=== PATIENT | female | born 1955 | race Caucasian/White ===

== ENCOUNTER 2017-05-18 17:12 | Inpatient (IN) | payer MEDICAID, OTHER ==
[~2017-05-18] VITALS: Ht 170.2 cm; Wt 59.0 kg
[~2017-05-18 17:12] MED LIST: LEVO50 PO; RISP1 PO
[2017-05-18 18:35] LABS: BASOPHILS # (AUTO) 0.02 K/uL (0.00-0.20); BASOPHILS % (AUTO) 0.3 % (0.0-2.0); EOSINOPHILS # (AUTO) 0.06 K/uL (0.00-0.70); EOSINOPHILS % (AUTO) 1.07 % (1.0-6.0); HEMATOCRIT 34.4 % (36-46); HEMOGLOBIN 11.7 g/dL (12.0-16.0); LYMPHOCYTES # (AUTO) 1.2 K/uL (1.0-4.8); LYMPHOCYTES % (AUTO) 22.2 % (22.0-44.0); MEAN CORPUSCULAR HEMOGLOBIN 32.8 pg (26.0-34.0); MEAN CORPUSCULAR HGB CONC 34.1 G/dL (31.0-37.0); MEAN CORPUSCULAR VOLUME 96 fL (80-100); MONOCYTES # (AUTO) 0.4 K/uL (0.1-1.0); MONOCYTES % (AUTO) 6.9 % (2.0-9.0); NEUTROPHILS # (AUTO) 3.7 K/uL (1.8-7.7); NEUTROPHILS % (AUTO) 69.5 % (40.0-70.0); PLATELET COUNT (AUTO) 163 K/uL (150-450); RED BLOOD CELL COUNT(AUTO) 3.58 MIL/uL (4.00-5.20); RED CELL DISTRIBUTION WIDTH 12.8 % (11.5-14.5); WHITE BLOOD COUNT (AUTO) 5.4 K/uL (4.5-11.0)
[2017-05-18 18:47] LABS: ANION GAP 7 mmol/L (8-16); CALCIUM, TOTAL 8.4 mg/dL (8.8-10.5); CARBON DIOXIDE 28 mmol/L (22-29); CHLORIDE 106 mmol/L (98-107); CREATININE 0.93 mg/dL (0.60-1.30); GLOMERULAR FILTR. RATE CALC > 60 mL/min (>60); POTASSIUM 4.1 mmol/L (3.5-5.1); SODIUM SERUM 141 mmol/L (136-145); UREA NITROGEN, BLOOD 13 mg/dL (7-18)
[2017-05-18 18:53] LABS: ALANINE AMINOTRANSFERASE 19 U/L (12-78); ALBUMIN 3.7 g/dL (3.4-5.0); ASPARTATE AMINOTRANSFERASE 20 U/L (15-37); BILIRUBIN,TOTAL 0.6 mg/dL (0.1-1.0); TOTAL PROTEIN, SERUM 6.7 g/dL (6.4-8.2)
[2017-05-18 22:12] LABS: APPEARANCE,URINE CLEAR (CLEAR); GLUCOSE, URINE (UA) NEGATIVE (NEGATIVE); KETONES,URINE NEGATIVE (NEGATIVE); LEUKOCYTE ESTERASE ,URINE NEGATIVE (NEGATIVE); OCCULT BLOOD,URINE SMALL (NEGATIVE); PROTEIN,URINE NEGATIVE (NEGATIVE)
[2017-05-18] MEDS ORDERED: LORazepam 2 MG TABLET PO PRN (22:15)
[2017-05-18] MEDS ORDERED: ZOLPIDEM TARTRATE 10 MG TABLET PO PRN (22:15)
[2017-05-18] MEDS ORDERED: OLANZapine 5 MG RAPDIS TABLET PO PRN (22:15)
[2017-05-18 22:32] LABS: CHOL/HDL RATIO 2.7 (3.9-5.7); THYROID STIMULATING HORMONE 20.6 uIU/mL (0.36-3.74)
[2017-05-18 22:45] LABS: ADD UA MICROSCOPIC YES; RBC,URINE 0-2 /HPF (0-2); WBC,URINE None Seen /HPF (0-5)
[2017-05-18 22:46] LABS: SQUAMOUS EPITHELIAL CELL,UR Few /LPF (None Seen)
[2017-05-19 00:35] VITALS: BP 124/57
[2017-05-19] MEDS ORDERED: INFLUENZA VIRUS VACCINE QVS 2017-18 (3YR+)/PF 60 MCG/0.5 ML SYRINGE IM ONE (01:45)
[2017-05-19] MEDS ORDERED: LEVOTHYROXINE SODIUM 50 MCG TABLET PO SCH (07:00)
[2017-05-19 08:00] VITALS: BP 135/81
[2017-05-19] MEDS ORDERED: CloNIDine HCL 0.1 MG TABLET PO PRN (08:15)
[2017-05-19] MEDS ORDERED: MAGNESIUM HYDROXIDE SUSPENSION 30 ML UDCUP PO PRN ×2 (08:15→11:15)
[2017-05-19] MEDS ORDERED: BENZOCAINE/MENTHOL LOZENGE [8 LOZENGES/PACKET] MM PRN (08:15)
[2017-05-19] MEDS ORDERED: ONDANSETRON HCL 4 MG TABLET PO PRN (08:15)
[2017-05-19] MEDS ORDERED: PETROLATUM,WHITE 71 GM JELLY TP PRN (08:15)
[2017-05-19] MEDS ORDERED: ACETAMINOPHEN 325 MG TABLET PO PRN ×2 (08:15→11:15)
[2017-05-19] MEDS ORDERED: MAG HYDROX/AL HYDROX/SIMETH ES 30 ML SUSPENSION UDCUP PO PRN ×2 (08:15→11:15)
[2017-05-19] MEDS ORDERED: LOPERAMIDE HCL 2 MG CAPSULE PO PRN ×2 (08:15→11:15)
[2017-05-19] MEDS ORDERED: IBUPROFEN 600 MG TABLET PO PRN (08:15)
[2017-05-19] MEDS ORDERED: BACITRACIN 28.4 GM OINTMENT TP PRN (08:15)
[2017-05-19] MEDS ORDERED: ALBUTEROL SULFATE HFA 90 MCG/PUFF 8 GM INHALER IH PRN (08:15)
[2017-05-19] MEDS ORDERED: GuaiFENesin/D-METHORPHAN [SUGAR-FREE] 200-20MG/10 ML SYRUP UDCUP PO PRN (11:15)
[2017-05-19] MEDS ORDERED: HydrOXYzine PAMOATE 50 MG CAPSULE PO PRN (11:15)
[2017-05-19] MEDS ORDERED: TUBERCULIN, PURIFIED PROTEIN DERIVATIVE 5 TU/0.1 ML SYG ID ONE (11:15)
[2017-05-19] MEDS ORDERED: PROMETHAZINE HCL 25 MG TABLET PO PRN (11:15)
[2017-05-19 16:44] VITALS: BP 130/67
[2017-05-19] MEDS: THIAMINE HCL 100 MG TABLET PO SCH (16:47)
[2017-05-19] MEDS ORDERED: RisperiDONE 1 MG TABLET PO PRN (17:00)
[2017-05-19] MEDS: RisperiDONE 2 MG TABLET PO SCH (21:00)
[2017-05-19] MEDS ORDERED: OLANZapine 5 MG RAPDIS TABLET PO SCH (21:00)
[2017-05-20] MEDS: LEVOTHYROXINE SODIUM 100 MCG TABLET PO SCH (06:49)
[2017-05-20] MEDS: MULTIVITAMINS WITH MINERALS, THERAPEUTIC TABLET PO SCH (08:09)
[2017-05-20] MEDS: THIAMINE HCL 100 MG TABLET PO SCH ×2 (08:09→18:19)
[2017-05-20] MEDS: FOLIC ACID 1 MG TABLET PO SCH (08:09)
[2017-05-20 08:16] VITALS: BP 121/94
[2017-05-20] MEDS: RisperiDONE 2 MG TABLET PO SCH (21:26)
[2017-05-21] MEDS: LEVOTHYROXINE SODIUM 100 MCG TABLET PO SCH (06:29)
[2017-05-21 08:20] VITALS: BP 115/60
[2017-05-21] MEDS: MULTIVITAMINS WITH MINERALS, THERAPEUTIC TABLET PO SCH (08:29)
[2017-05-21] MEDS: FOLIC ACID 1 MG TABLET PO SCH (08:30)
[2017-05-21] MEDS: THIAMINE HCL 100 MG TABLET PO SCH ×2 (08:30→17:04)
[2017-05-21 17:20] VITALS: BP 101/91
[2017-05-21] MEDS: RisperiDONE 2 MG TABLET PO SCH (21:06)
[2017-05-22] MEDS: LEVOTHYROXINE SODIUM 100 MCG TABLET PO SCH (06:48)
[2017-05-22] MEDS: MULTIVITAMINS WITH MINERALS, THERAPEUTIC TABLET PO SCH (08:29)
[2017-05-22] MEDS: THIAMINE HCL 100 MG TABLET PO SCH ×2 (08:29→16:24)
[2017-05-22] MEDS: FOLIC ACID 1 MG TABLET PO SCH (08:30)
[2017-05-22] MEDS: RisperiDONE 1 MG TABLET PO SCH (08:30)
[2017-05-22 08:48] VITALS: BP 103/58
[2017-05-22] MEDS: RisperiDONE 2 MG TABLET PO SCH (20:23)
[2017-05-22 20:59] VITALS: BP 112/65
[2017-05-23] MEDS: LEVOTHYROXINE SODIUM 100 MCG TABLET PO SCH (07:07)
[2017-05-23 08:14] VITALS: BP 106/68
[2017-05-23] MEDS: MULTIVITAMINS WITH MINERALS, THERAPEUTIC TABLET PO SCH (09:11)
[2017-05-23] MEDS: FOLIC ACID 1 MG TABLET PO SCH (09:11)
[2017-05-23] MEDS: THIAMINE HCL 100 MG TABLET PO SCH ×2 (09:11→17:16)
[2017-05-23] MEDS: RisperiDONE 1 MG TABLET PO SCH (09:11)
[2017-05-23 16:00] VITALS: BP 118/68
[2017-05-23 17:28] VITALS: BP 118/68
[2017-05-23] MEDS: RisperiDONE 2 MG TABLET PO SCH (20:56)
[2017-05-24 01:46] VITALS: BP 126/93
[2017-05-24] MEDS: LEVOTHYROXINE SODIUM 100 MCG TABLET PO SCH (06:18)
[2017-05-24 08:17] VITALS: BP 141/91
[2017-05-24] MEDS: MULTIVITAMINS WITH MINERALS, THERAPEUTIC TABLET PO SCH (08:41)
[2017-05-24] MEDS: FOLIC ACID 1 MG TABLET PO SCH (08:41)
[2017-05-24] MEDS: THIAMINE HCL 100 MG TABLET PO SCH ×2 (08:41→16:23)
[2017-05-24] MEDS: RisperiDONE 2 MG TABLET PO SCH ×2 (08:43→20:09)
[2017-05-24 18:12] VITALS: BP 114/72
[2017-05-24] MEDS: TRIHEXYPHENIDYL HCL 2 MG TABLET PO SCH (20:09)
[2017-05-25 01:21] VITALS: BP 125/74
[2017-05-25] MEDS: LEVOTHYROXINE SODIUM 100 MCG TABLET PO SCH (06:30)
[2017-05-25 08:14] VITALS: BP 106/51
[2017-05-25] MEDS: MULTIVITAMINS WITH MINERALS, THERAPEUTIC TABLET PO SCH (09:15)
[2017-05-25] MEDS: RisperiDONE 2 MG TABLET PO SCH ×2 (09:15→20:50)
[2017-05-25] MEDS: FOLIC ACID 1 MG TABLET PO SCH (09:15)
[2017-05-25] MEDS: THIAMINE HCL 100 MG TABLET PO SCH ×2 (09:15→17:31)
[2017-05-25] MEDS: TRIHEXYPHENIDYL HCL 2 MG TABLET PO SCH ×2 (09:16→20:48)
[2017-05-25 16:38] VITALS: BP 111/73
[2017-05-26] MEDS: LEVOTHYROXINE SODIUM 100 MCG TABLET PO SCH (07:01)
[2017-05-26] MEDS: TRIHEXYPHENIDYL HCL 2 MG TABLET PO SCH ×2 (08:19→20:59)
[2017-05-26] MEDS: RisperiDONE 2 MG TABLET PO SCH (08:19)
[2017-05-26] MEDS: MULTIVITAMINS WITH MINERALS, THERAPEUTIC TABLET PO SCH (08:19)
[2017-05-26] MEDS: THIAMINE HCL 100 MG TABLET PO SCH ×2 (08:19→17:05)
[2017-05-26] MEDS: FOLIC ACID 1 MG TABLET PO SCH (08:19)
[2017-05-26 10:21] VITALS: BP 114/57
[2017-05-26 18:05] VITALS: BP 131/89
[2017-05-26] MEDS: RisperiDONE 3 MG TABLET PO SCH (20:59)
[2017-05-27] MEDS: LEVOTHYROXINE SODIUM 100 MCG TABLET PO SCH (07:07)
[2017-05-27 08:54] VITALS: BP 112/70
[2017-05-27] MEDS: MULTIVITAMINS WITH MINERALS, THERAPEUTIC TABLET PO SCH (08:57)
[2017-05-27] MEDS: TRIHEXYPHENIDYL HCL 2 MG TABLET PO SCH ×2 (08:57→20:19)
[2017-05-27] MEDS: RisperiDONE 3 MG TABLET PO SCH ×2 (08:58→20:19)
[2017-05-27 09:00] VITALS: BP 112/70
[2017-05-27] MEDS: THIAMINE HCL 100 MG TABLET PO SCH ×2 (09:02→17:25)
[2017-05-27] MEDS: FOLIC ACID 1 MG TABLET PO SCH (09:02)
[2017-05-27 17:47] VITALS: BP 110/66
[2017-05-28] MEDS: LEVOTHYROXINE SODIUM 100 MCG TABLET PO SCH (07:09)
[2017-05-28 08:15] VITALS: BP 111/58
[2017-05-28] MEDS: MULTIVITAMINS WITH MINERALS, THERAPEUTIC TABLET PO SCH (08:56)
[2017-05-28] MEDS: FOLIC ACID 1 MG TABLET PO SCH (08:56)
[2017-05-28] MEDS: RisperiDONE 3 MG TABLET PO SCH ×2 (08:56→22:53)
[2017-05-28] MEDS: TRIHEXYPHENIDYL HCL 2 MG TABLET PO SCH ×2 (08:56→22:53)
[2017-05-28] MEDS: THIAMINE HCL 100 MG TABLET PO SCH ×2 (08:56→16:27)
[2017-05-28] MEDS ORDERED: TRIH2TAB3 PO (17:27)
[2017-05-28] MEDS ORDERED: RISP3 PO (17:27)
[2017-05-29] MEDS: LEVOTHYROXINE SODIUM 100 MCG TABLET PO SCH (06:47)
[2017-05-29] MEDS: MULTIVITAMINS WITH MINERALS, THERAPEUTIC TABLET PO SCH (08:03)
[2017-05-29] MEDS: RisperiDONE 3 MG TABLET PO SCH (08:03)
[2017-05-29] MEDS: FOLIC ACID 1 MG TABLET PO SCH (08:03)
[2017-05-29] MEDS: TRIHEXYPHENIDYL HCL 2 MG TABLET PO SCH (08:03)
[2017-05-29] MEDS: THIAMINE HCL 100 MG TABLET PO SCH (08:03)
[2017-05-29 08:16] VITALS: BP 109/82
[2017-05-29] MEDS ORDERED: MULT-1239 PO (12:56)
[2017-05-29 16:00] VITALS: BP 110/68
== END 2017-05-29 17:00 | disposition home or self-care (01) | DRG 750 ==
LOC: EMS 17:14 → 3EC 05-19 00:34
PROVIDERS: ADMIT Psychiatry & Neurology Psychiatry; ATTEND Psychiatry & Neurology Psychiatry
DX: F25.0 Schizoaffective disorder, bipolar type (principal); R45.851 Suicidal ideations; E83.52 Hypercalcemia; E03.9 Hypothyroidism, unspecified; G47.00 Insomnia, unspecified; K21.9 Gastro-esophageal reflux disease without esophagitis; M54.5 Low back pain; K59.00 Constipation, unspecified; Z91.14 Patient's other noncompliance with medication regimen; Z79.899 Other long term (current) drug therapy
CPT/HCPCS: 84443; 93005; 99285; G0480

== ENCOUNTER 2017-06-18 20:12 | Emergency (ER) | payer MEDICAID ==
[~2017-06-18] VITALS: Ht 167.6 cm; Wt 68.2 kg
[~2017-06-18 20:12] MED LIST changes: +MULT-1239 PO; -RISP1 PO; +RISP3 PO; +TRIH2TAB3 PO
[2017-06-18 20:23] VITALS: BP 138/90
== END 2017-06-19 01:06 | disposition left against medical advice (07) ==
LOC: EMS 20:13
DX: F41.9 Anxiety disorder, unspecified (principal); F20.9 Schizophrenia, unspecified; E03.9 Hypothyroidism, unspecified; Z53.21 Procedure and treatment not carried out due to patient leaving prior to being seen by health care provider